=== PATIENT | female | born 1945 | race Caucasian/White ===

== ENCOUNTER 2017-08-22 16:27 | Inpatient (IN) | payer MEDICARE ==
[~2017-08-22] VITALS: Ht 172.7 cm; Wt 106.0 kg
[~2017-08-22 16:27] MED LIST: AZITHROMYCIN250 MG; CYCLOBENZAPRINE10 MG PO; FLUCONAZOLE150 MG; HYDRALAZINE HCL25 MG PO; IPRAT-ALBUT 0.5-3 ML INH; LEVOFLOXACIN500 MG PO; LOSARTAN POTASS50 MG PO; LYRICA50 MG PO; MEDROL4 M1 PO; NAPROSYN375 MG PO; NAPROXEN500 MG; OXYCODONE HCL5 MG; PROAIR HFA8.5 GM; PROAIR HFA8.5 GM INH; PROVENTIL HFA6.7 GM INH; TESSALON PERLE100 MG PO; TRAMADOL HCL50 MG PO; VICODIN ES 7.51 EAC1 PO; ZITHROMAX TRI-500 MG PO
[2017-08-22] MEDS ORDERED: ATORVASTATIN CA10 MG PO (16:48)
--- NOTE | 2017-08-22 21:10 | NUR ---
RECEIVED REPORT FROM COMBINATION WELDER. PATIENT INITIAL ASSESMENT COMPLETED. ADMISSION COMPLETED BY COMBINATION WELDER. PATIENT IS RESTING IN BED. PATIENTS EVENING MEDICATIONS GIVEN PER ORDER. PATIENT RATES PAIN AT A 6/10. PATIENT HAS NO PAIN MEDICATIONS ON EMAR. WILL TALK TO HOSPITALIST. NO FURTHER NEEDS NOTED. CALL LIGHT IN REACH.
--- NOTE | 2017-08-22 22:20 | NUR ---
MD PLACED NEW ORDER FOR PATIENT FOR PAIN MANAGEMENT. PATIENT GIVEN PRN PAIN MEDICATION PER ORDER. NO FURTHER NEEDS NOTED. CALL LIGHTIN REACH.
--- NOTE | 2017-08-22 22:50 | NUR ---
PATIENT MOVED TO ROOM 117. PATIENT TOLERATED MOVE WELL. PLACED BEDISDE COMMODE BY PATIENTS BEDSIDE TO USE. PATIENT ORIENTED TO NEW ROOM. NO FURTHER NEEDS NOTED. CALL LIGHT IN REACH.
--- NOTE | 2017-08-23 01:36 | NUR ---
PATIENTS COMMODE EMPTIED. PATIENTS GOWN AND PILLOW CASE CHANGED PATIENT IS SOAKED WITH SWEAT. PATIENT RATES PAIN AT A 3/10. PATIENT DENIES THE NEED FOR PAIN MEDICATION AT THIS TIME. CALL LIGHT IN REACH.
--- NOTE | 2017-08-23 02:48 | NUR ---
PATIENTS VITALS TAKEN AND RECORDED. PATIENT DENIES ANY NEEDS AT THIS TIME. CALL LIGHT IN REACH.
--- NOTE | 2017-08-23 04:52 | NUR ---
PATIENT IS RESTING IN BED ON HER RIGHT SIDE. PATIENTS BREATHING IS EVEN AND UNLABORED, RR 21. CALL LIGHT IN REACH.
--- NOTE | 2017-08-23 06:36 | NUR ---
PATIENT ASSISTED TO THE BEDSIDE COMMODE. PATIENT WAS ABLE TO PIVOT TRANSFER WITH NO ASSISTANCE. PATIENT WAS ABLE TO VOID A SMALL AMOUNT. PATIENT RATES PAIN AT AN 8/10. PATIENT GIVEN PRN PAIN MEDICATION PER ORDER. PATIENT IS BACK IN BED RESTING. PATIENT DENIES ANYU FURTHER NEEDS AT THIS TIME. CALL LIGHT IN REACH.
--- NOTE | 2017-08-23 06:41 | NUR ---
PATIENT HAS LOWER URINE OUPUT. PLACED CALL TO MD. NO NEW ORDERS AT THIS TIME.
--- NOTE | 2017-08-23 07:48 | NUR ---
PATIENT AWAKE LYING IN BED DURING REPORT. REPORT RECEIVED FROM ARIS BARON. PT WANTS FENTANYL IV FOR BACK PAIN.
--- NOTE | 2017-08-23 08:09 | NUR ---
PT RESTING ON RIGHT SIDE IN BED. C/O FEELING COLD IN TRUNK AREA. FENTANYL 25MCG GIVEN IV. TOOK SCHEDULED MEDS. DOES NOT LIKE BLANKETS ON FEET.
--- NOTE | 2017-08-23 10:43 | NUR ---
PATIENT STATES THAT SHE HAS NOT GONE TO THE BATHROOM SINCE SHIFT CHANGE AND DOES NOT NEED TO USE THE RESTROOM.
--- NOTE | 2017-08-23 10:52 | NUR ---
PATIENT RESTING IN BED. RN NOTIFIED ABOUT BLOOD PRESSURE. PATIENT VISITING WITH A FRIEND. PATIENT STATES SHE HAS A HARD TIME GOING TO THE BATHROOM. FRESH ICE WATER. CALL LIGHT WITHIN REACH. NO OTHER NEEDS AT THIS TIME.
--- NOTE | 2017-08-23 11:49 | NUR ---
PT UP TO BSC AND BACK TO BED INDEPENDENTLY. SISTER IN LAW AT BEDSIDE. LUNCH DELIVERED. BP IMPROVED. VOIDED 250 DARK PAUL FOUL SMELLING URINE.
[2017-08-23] MEDS ORDERED: ATORVASTATIN CA20 MG PO (11:58)
--- NOTE | 2017-08-23 12:01 | NUR ---
MED REC COMPLETE WITH SAFEWAY REFILL HISTORY AND PATIENT INTERVIEW. PATIENT ALSO GETS MAIL ORDER MEDICATION.
[2017-08-23] MEDS ORDERED: CRANBERRY200 MG PO (12:09)
[2017-08-23] MEDS ORDERED: VITAMIN E100 UNIT PO (12:11)
[2017-08-23] MEDS ORDERED: VITAMIN D5000 UNI1 PO (12:11)
[2017-08-23] MEDS ORDERED: VITAMIN A8000 UNIT PO (12:11)
--- NOTE | 2017-08-23 13:33 | NUR ---
PATIENT RELAXING IN BED. PATIENT STATES PAIN LEVEL IS A 4 OUT OF 10 WHEN SHE DOES NOT MOVE. PATIENT STATES PAIN LEVEL IS A 6 OUT OF 10 WHEN SHE MOVES. FRESH ICE WATER. CALL LIGHT WITHIN REACH. NO OTHER NEEDS AT THIS TIME.
--- NOTE | 2017-08-23 13:45 | NUR ---
pt grunting and reported pain 7/10 in back to VETERANS ADVISER. patient lying on right side. IVF infusing. fentanyl given for pain.
--- NOTE | 2017-08-23 17:55 | NUR ---
PATIENT SLEEPING MOST OF DAY. INDEPENDENT TO BSC. PAIN IN BACK-- 25MCG FENTANYL IV FOR PAIN. LOW URINE OUTPUT. DARK PAUL. NS @ 125. ROCEPHIN/ZITHROMAX. WATCH LUNG SOUNDS FOR FLUID OVERLOAD. 2L 02 VIA NC. INDEPENDENT TO BSC.
--- NOTE | 2017-08-23 18:03 | NUR ---
PATIENT SITTING UP IN BED. PATIENT STATES PAIN LEVEL IS A 9 OUT OF 10. RN NOTIFIED. PATIENT STATES SHE HAS NOT BEEN ABLE TO USE THE RESTROOM, BUT DID TRY PRIOR TO THIS CRIME SPECIALIST GOING INTO ROOM. RN IN ROOM. CALL LIGHT WITHIN REACH. NO OTHER NEEDS AT THIS TIME.
--- NOTE | 2017-08-23 18:04 | NUR ---
ADMINISTERED PRN PAIN MEDS PER RN AND PT REQUEST.
--- NOTE | 2017-08-23 19:15 | NUR ---
RECEIVED REPORT FROM RN. PATIENT RESTING IN BED, BREATHING IS EVEN AND UNLABORED. DENIES NEEDS AT THIS TIME. CALL LIGHT WITHIN REACH.
--- NOTE | 2017-08-23 21:02 | NUR ---
PATIENT RESTING IN BED, BREATHING IS EVEN AND UNLABORED. REPORTS 5/10 PAIN IN BACK, PRN FENTANYL GIVEN PER EMAR. PATIENT DENIES FURTHER NEEDS. CALL LIGHT WITHIN REACH.
--- NOTE | 2017-08-23 22:31 | NUR ---
PATIENT GIVEN PRN TYLENOL FOR HEADACHE, REPORTS 2/10 PAIN. DENIES FURTHER NEEDS. CALL LIGHT WITHIN REACH.
--- NOTE | 2017-08-24 03:29 | NUR ---
PATIENT RESTING IN BED, BREATHING IS EVEN AND UNLABORED. REPORTS 4/10 PAIN, DENIES NEED FOR PAIN MEDICATION. NO NEEDS AT THIS TIME. CALL LIGHT WITHIN REACH.
--- NOTE | 2017-08-24 05:24 | NUR ---
PATIENT SITTING ON EDGE OF BED, RR IS 24, BREATHING APPEARS TO BE LABORED. PATIENT REPORTS "COUGHING FIT" AND STATES THAT THIS IS THE REASON FOR SHORTNESS OF BREATH. REPORTS 7/10 PAIN IN BACK. PRN FENTANYL GIVEN PER EMAR. PATIENT DENIES FURTHER NEEDS. CALL LIGHT WITHIN REACH.
--- NOTE | 2017-08-24 05:48 | NUR ---
PATIENT'S NIGHT WAS UNEVENTFUL. SHE HAS BEEN RESTING OFF AND ON THROUGHOUT SHIFT. VSS, URINE OUTPUT QS. PAIN WELL CONTROLLED WITH PRN FENTANYL. REMAINS ALERT AND ORIENTED. CONTINUES TO HAVE EXW IN ALL LUNG GALLAGHER, ABLE TO TITRATE O2 TO 1L VIA NC. IV FLUIDS INFUSING THROUGHOUT NIGHT, SBA TO BEDSIDE COMODE. NO ACUTE CHANGES.
--- NOTE | 2017-08-24 08:35 | NUR ---
This MOLECULAR PATHOLOGIST standby assisted patient up to bathroom and back to bedside. Oral care and clean gown set up in bathroom for patient. Patient states she will do oral care and change gowns later as she would like to shower this evening after family visits. Linens changed. Patient given warm blankets and fresh ice water. Call light in reach. no other needs at this time.
--- NOTE | 2017-08-24 09:15 | NUR ---
PT RESTING IN BED, AWOKE EASILY TO VOICE. ASSESSMENT COMPLETED AND MEDICATED WITH AM MEDS. STATES THAT SHE IS VERY COLD, GIVEN WARM BLANKET AND EXTRA HEAVY BLANKET PER REQUEST. IV INFUSING WNL, DRESSING CDI. 2+ PITTING EDEMA OF BILATERAL LOWER EXTREMITIES. ALERT AND ORIENTED. SATTING 96% ON 1L NC. FINE CRACKLES IN BASES, NOTIFIED DR. MONTENEGRO. CALL LIGHT WITHIN REACH.
--- NOTE | 2017-08-24 10:16 | NUR ---
PATIENT RESTING, EYES CLOSED. FRESH ICE WATER AT BEDSIDE TABLE. CALL LIGHT IN REACH. NO OTHER NEEDS AT THIS TIME.
--- NOTE | 2017-08-24 12:12 | NUR ---
PATIENT SITTING UP ON BEDSIDE, EATING LUNCH. FAMILY IN ROOM. CALL LIGHT IN REACH. NO OTHER NEEDS AT THIS TIME.
--- NOTE | 2017-08-24 12:30 | NUR ---
PT SITTING UP AT BEDSIDE EATING LUNCH. WEANED TO RA, SATTING 98% ON RA. PT DENIES PAIN OR OTHER CONCERNS AT THIS TIME. CALL LIGHT WITHIN REACH.
--- NOTE | 2017-08-24 13:15 | NUR ---
PT UP TO RESTROOM WITH MINIMAL ASSIST. URINE HAS BECOME MUCH CIGAR HEAD PUNCHER, YELLOW URINE, NO FOUL ODOR NOTED. PT REPORTS LESS DISCOMFORT DURING URINATION, BUT COMPLAINS OF INCONTINENCE.
--- NOTE | 2017-08-24 14:36 | NUR ---
PATIENT WASHED UP IN BATHROOM WITH BATH WIPES. PATIENT SITTING UP ON BEDSIDE. FRESH ICE WATER AT BEDSIDE. CALL LIGHT IN REACH. NO OTHER NEEDS AT THIS TIME.
--- NOTE | 2017-08-24 14:39 | NUR ---
PATIENT STATES SHES BEEN MOVING AROUND ROOM ACTIVELY AND THAT IT MAY CONTRIBUTE TO HER HIGHER BLOOD PRESSURE. RN NOTIFIED OF BLOOD PRESSURE CHANGES.
--- NOTE | 2017-08-24 15:00 | NUR ---
PT SL AND TRANSFERRED TO IMAGING VIA WHEELCHAIR FOR CT SCAN.
--- NOTE | 2017-08-24 15:40 | NUR ---
Patient resting in bed eyes closed. RN in room. Call light in reach. No other needs at this time.
--- NOTE | 2017-08-24 15:55 | NUR ---
PT MEDICATED WITH TYLENOL FOR HEADACHE. IV LEAKING SLIGHTLY, IV REPOSITIONED AND REDRESSED, FLUSHING WELL AT THIS TIME. UP TO BEDSIDE COMMODE TO VOID. BACK TO BED. CALL LIGHT WITHIN REACH.
--- NOTE | 2017-08-24 16:33 | NUR ---
RIGHT HAND IV CONTINUED TO LEAK. IV DC'D BY THIS RN AND NEW 22G IV STARTED IN LEFT AC BY SHANELL BARON. PT RESTING IN BED, FLUIDS RUNNING WNL. NO FURTHER NEEDS AT THIS TIME.
--- NOTE | 2017-08-24 19:05 | NUR ---
RECEIVED REPORT FROM RN. PATIENT RESTING IN BED, DENIES NEEDS AT THIS TIME. CALL LIGHT WITHIN REACH.
--- NOTE | 2017-08-24 19:06 | NUR ---
RN IN ROOM. PATIENT SITTING UP ON BEDSIDE. CALL LIGHT IN REACH. NO OTHER NEEDS AT THIS TIME.
--- NOTE | 2017-08-24 21:13 | NUR ---
VITALS AND I&OS DONE AND CHARTED. FRESH WATER GIVEN AFTER SHE SPILLED ON THE FLOOR. I LET RN KARLOS KNOW THAT SHE WOULD LIKE A TYLENOL FOR A HEADACHE. BEDSIDE TABLE AND CALL LIGHT WITHIN REACH.
--- NOTE | 2017-08-24 21:48 | NUR ---
PATIENT IS RESTING IN BED, BREATHING APPEARS TO BE LABORED DUE TO COUGH. DENIES FEELING SHORT OF BREATH. REPORTS 5/10 HEADACHE, PRN TYLENOL GIVEN. PATIENT DENIES FURTHER NEEDS. CALL LIGHT WITHIN REACH.
--- NOTE | 2017-08-24 23:50 | NUR ---
PATIENT CALLED NURSES STATION STATING "I CAN'T BREATHE." UPON ENTERING ROOM, PATIENT'S BREATH WAS LABORED AND TACHYPNEIC. PATIENT DENIES CHEST PAIN, RT ALSO IN ROOM. BREATHING TREATMENTS DONE PER EMAR. DURING BREATHING TREATMENTS, PATIENT STATES THAT SHE IS BEGINNING OF FEEL BETTER. EXW HEARD THROUGHOUT ALL LUNG GALLAGHER, IMPROVED WITH BREATHING TREATMENTS. NOW RESTING IN BED WITH HEAD ELEVATED, BREATHING IS EVEN AND UNLABORED. DENIES FURTHER NEEDS. CALL LIGHT WITHIN REACH.
--- NOTE | 2017-08-25 00:28 | NUR ---
PATIENT RESTING COMFORTABLY IN BED, BREATHING IS EVEN AND UNLABORED. FLACC SCORE OF 0. CALL LIGHT WITHIN REACH.
--- NOTE | 2017-08-25 03:00 | NUR ---
PATIENT RESTING IN BED, BREATHING IS EVEN AND UNLABORED. FLACC SCORE OF 0. CALL LIGHT WITHIN REACH.
--- NOTE | 2017-08-25 06:35 | NUR ---
PATIENT RESTING IN BED, BREATHING IS EVEN AND UNLABORED. FLACC SCORE OF 0. CALL LIGHT WITHIN REACH.
--- NOTE | 2017-08-25 07:15 | NUR ---
BEDSIDE HANDOFF REPORT RECEIVED FROM DIRECTOR OF PROPERTY MANAGEMENT RN. PT RESTING IN BED. IV FLUIDS INFUSING AT 125 ML/HR. PT ON 3L NC. PT DENIES OTHER NEEDS AT THIS TIME.
--- NOTE | 2017-08-25 09:15 | NUR ---
PT RESTING IN BED. PT ON 3L NC, WEANED TO ROOM AIR, LUNG SOUNDS CLEAR, OCCASIONAL COUGH, DENIES SOB. PT DENIES PAIN. BOWEL TONES ACTIVE, DENIES NAUSEA, BREAKFAST AT BEDSIDE. PT WITH EDEMA TO BLE, HX NEUROPATHY, PULSES PALPABLE. IV INFUSING NS AT 125 ML/HR, IV ABX INFUSING. PT SITTING ON EDGE OF BED FOR BREAKFATS. PT DENIES OTHER NEEDS AT THIS TIME. DISCUSSED PLAN OF CARE, PT REQUESTIGN TO SHOWER.
--- NOTE | 2017-08-25 10:59 | NUR ---
CAME IN TO SEE IF SHE WAS DONE WITH HER BREAKFAST. ALSO SHE WOULD LIKE TO TAKE A SHOWER LATER. NOW SHE IS RESTING.
--- NOTE | 2017-08-25 12:00 | NUR ---
MD TO BEDSIDE. PT SALINE LOCKED. ARM WRAPPED FRO SHOWER. CONTRIBUTION SOLICITOR TO ASSIST PT WITH SHOWER. PT DENIES OTHER NEEDS AT THIS TIME.
--- NOTE | 2017-08-25 12:27 | NUR ---
PT SHOWERED WITH MINIMAL ASSISTANCE, NEEDED HELP WASHING HER HAIR. PT BRUSHED HER TEETH. PT IS NOW SITTING UP IN CHAIR WITH CALL LIGHT IN REACH. LINENS WERE CHANGED BY JAMES COX. PT DID NOT NEED ANYTHING ELSE AT THE MOMENT
--- NOTE | 2017-08-25 14:25 | NUR ---
PT RESTING IN BED. PT STATES BREATHING FEELS BETTER AFTER NEB, CONTINUES TO HAVE SLIGHT EXPIRATORY WHEEZE THROUGHOUT, PT ON ROOM AIR. PT DENIES NAUSEA, BOWEL TONES ACTIVE. PT UP TO BATHROOM, VOIDING AND HAD BM. PT REQUESTING TYLENOL FOR HEADACHE, STATES SHE GETS HEADAHCES WHEN SHE HAS ALBUTEROL, 500 MG GIVEN. PT CONTINUES TO HAVE EDEMA TO BLE, UNCHANGED. PT DENIES OTHER NEEDS AT THIS TIME.
--- NOTE | 2017-08-25 17:35 | NUR ---
PT SITTING ON EDGE OF BED, EATING DINNER. PT DENIES NEEDS AT THIS TIME.
--- NOTE | 2017-08-25 18:15 | NUR ---
PT ON ROOM AIR, LUNG SOUNDS CLEAR WITH OCCASIONAL EXPIRATORY WHEEZE, PRN NEBS GIVEN. PT UP INDEPENDENT IN ROOM. SALINE LOCKED. TOLERATING CARDIAC DIET, HAD LARGE BM TODAY. PT URECEIVEDING IV CEFEPIME AND ZITHROMAX. PT WITH EDEMA TO BLE, 2+ UNCHANGED FROM THIS AM. PT VOIDING QS.
--- NOTE | 2017-08-25 19:00 | NUR ---
shift report receievd. patient in bathroom at this time. no needs.
--- NOTE | 2017-08-25 20:20 | NUR ---
Charge Nurse Rounding Note: Awake, watching tv, no c/o pain or requests.
--- NOTE | 2017-08-25 20:43 | NUR ---
VITALS AND I&OS DONE AND CHARTED. BEDSIDE TABLE AND CALL LIGHT WITHIN REACH. PT NEEDS NOTHING ELSE AT THIS TIME.
--- NOTE | 2017-08-25 21:50 | NUR ---
PATIENT FINISHED NEB TREATMENT AND REQUEST PRN TYLENOL TO HELP WITH HEADACHE THAT SHE REGULARLY GETS FROM USING ALBUTEROL. PATIENT DENIES ANY PAIN. SHE IS AAOX3. VERY TALKATIVE. LUNGS ARE CLEAR IN UPPER LOBED, COARSE IN LOWER LOBES. DRY COUGH. ABD IS ROUND, SOFT, BOWEL SOUNDS ACTIVE. EDEMA NOTED IN IN LOWER EXTREMITIES AND ARMS, PATIENT WILL NOT ALLOW PROPER ASSESSMENT OF EDEMA BECAUSE "YOU WILL PUSH TO HARD AND BLOOD WILL JUST START POORING OUT". SHE REPORTS VERY FRAGILE SKIN AND HAS MULTIPLE ABRASIONS ON EACH ARM. URINE OUTPUT HAS BEEN QS. PATIENT HAD REMOVED THE HAT FROM THE TOILET AND STATED "THEY DON'T NEED TO COLLECT MY PEE ANYMORE". I DISCUSSED THE IMPORTANCE OF MONITORING I&O'S AND PLACED HAT BACK IN TOILET. SHE AGREED TO USE IT BUT STATES, I WONT BE HAPPY IF I HAVE TO POOP AND THAT'S IN THERE." I ENCOURAGED HER TO CALL IF SHE NEEDS ASSISTANCE. PATIENT RESTING IN BED. DENIES FURTHER NEEDS.
--- NOTE | 2017-08-26 00:10 | NUR ---
PATIENT CALLED TO LET STAFF KNOW SHE HAD USED THE BATHROOM. RN EMPTIED HAT IN TOILET. PATIENT DENIES NEEDS.
--- NOTE | 2017-08-26 06:25 | NUR ---
PATIENT SLEPT WELL DURING THE NIGHT. URINE OUTPUT QS. TOLERATING DIET. PRN TYLENOL AFTER NEB TREATMENT FOR HEADACHE. TOLERATING ROOM AIR.
--- NOTE | 2017-08-26 06:32 | NUR ---
VITALS AND I&OS DONE AND CHARTED. GARBAGES EMPTIED. ROOM CLEANED UP. BEDSIDE TABLE AND CALL LIGHT WITHIN REACH. PT NEEDS NOTHING ELSE AT THIS TIME.
--- NOTE | 2017-08-26 07:20 | NUR ---
HANDOFF REPORT RECEIVED FROM RUBBER CUTTER RN. PT LEFT UNDISTURBED.
--- NOTE | 2017-08-26 08:45 | NUR ---
PT SITTING ON EDGE OF BED. PT DENIES PAIN. PT ON ROOM AIR, LUNG SOUNDS CLEAR WITH EXPIRATORY WHEEZE THROUGHOUT, PT DECLINING NEB AT THIS TIME. PT BOWEL TONES ACTIVE, DENIES NAUSEA. IV TO RIGHT AC, PATENT INFUSING IV ABX. PT CONTINUES TO HAVE EDEMA TO BLE, 2+, STATES AT BASELINE. DISCUSSED PLAN OF CARE FOR THE DAY. PT DENIES OTHER NEEDS AT THIS TIME.
--- NOTE | 2017-08-26 10:00 | NUR ---
PT SITTING ON EDGE OF BED. MD TO BEDSIDE, PLAN TO DISCHARGE TODAY. PT DENIES OTHER NEEDS AT THIS TIME.
[2017-08-26] MEDS ORDERED: DIFLUCAN150 MG PO (10:03)
[2017-08-26] MEDS ORDERED: AUGMENTIN 875-1 EACH PO (10:04)
--- NOTE | 2017-08-26 11:45 | NUR ---
DISCHARGE INSTRUCTIONS COMPLETED WITH PT. IV CATH REMOVED. MEDICATIONS REVIEWED. PT DRESSING AND COLLECTING BELONGS. RIDE TO ARRIVE AROUND 1230.
== END 2017-08-26 12:38 | disposition home or self-care (01) | DRG 689 ==
LOC: ED 16:27 → MS 19:04
PROVIDERS: ADMIT Internal Medicine
DX: N39.0 Urinary tract infection, site not specified (principal); J18.9 Pneumonia, unspecified organism; R65.10 Systemic inflammatory response syndrome (SIRS) of non-infectious origin without acute organ dysfunction; J44.9 Chronic obstructive pulmonary disease, unspecified; I10 Essential (primary) hypertension; E78.5 Hyperlipidemia, unspecified; E11.9 Type 2 diabetes mellitus without complications; K80.20 Calculus of gallbladder without cholecystitis without obstruction
CPT/HCPCS: 36415; 71045; 74177; 80048; 80053; 81001; 83605; 83690; 85025; 87040; 87088; 94640; 94760; J0456; J0696; J1650; J2405; J3010; J7030; J7040; J7050; Q9967

== ENCOUNTER 2020-07-03 08:35 | Day surgery (SDC) | payer MEDICARE ==
[~2020-07-03] VITALS: Ht 165.1 cm; Wt 95.4 kg
[~2020-07-03 08:35] MED LIST changes: +ADVAIR 500-501 EACH INH; +ALDACTONE25 MG PO; +ATORVASTATIN CA10 MG PO; +ATORVASTATIN CA20 MG PO; +AUGMENTIN 875-1 EACH PO; +CRANBERRY200 MG PO; +DEMADEX20 MG PO; +DIFLUCAN150 MG PO; +DILTIAZEM HCL60 MG PO; +DITROPAN XL5 MG PO; +ELIQUIS5 MG PO; +LOSARTAN POTASS25 MG PO; +LOW DOSE ASPIRI81 MG PO; +MAGNESIUM400 M1 PO; +VENTOLIN HFA18 GM NEB; +VITAMIN A8000 UNIT PO; +VITAMIN D5000 UNI1 PO; +VITAMIN E100 UNIT PO
--- NOTE | 2020-07-03 10:37 | NUR ---
07/03/20 Adina Onofre 1029-PATIENT ARRIVED TO PACU ON 6L MASK RR EVEN NONAROUSABLE. LEFT ARM ELEVATED ON PILLOW DRESSING INTACT. GOOD CAP REFILL AND WARMTH TO LEFT HAND. JIMY RADIAL PULSE DUE TO DRESSING. BP 96/44
[2020-07-03] MEDS ORDERED: OXYCODON-ACETA1 EAC2 PO (10:54)
[2020-07-03] MEDS ORDERED: ACETAMINOPHEN500 MG PO (10:54)
--- NOTE | 2020-07-06 13:00 | OR ---
[facility] [address], [place] [address] Signed DATE OF OPERATION: 07/03/2020 SURGEON: Kahtya Ingram MD PREOPERATIVE DIAGNOSIS: Left carpal tunnel syndrome. POSTOPERATIVE DIAGNOSIS: Left carpal tunnel syndrome. PROCEDURE: Left carpal tunnel release. ANESTHESIA: Left [place] block with IV sedation, Michael Leung CRNA and local 10 mL of 0.25% Marcaine without epinephrine. INDICATIONS: This 74-year-old white woman is a patient of Dr. Aguayo and has numerous chronic pain problems including knees and back and so forth. She has had very significant left hand and wrist symptoms highly typical of carpal tunnel syndrome. She has right-sided symptoms as well, but they are not as profound as on the left side. She is right-hand dominant. Her symptoms include numbness and tingling in the palm, wrist, thumb and index finger, particularly when driving. Splints were used without significant benefit. She underwent nerve conduction studies on April 14, 2020, confirming bilateral carpal tunnel syndrome, median neuropathy at the wrist, left greater than right. She is admitted at this time to undergo left carpal tunnel release. She understands the risks of bleeding, infection, recurrent disease and most importantly failure to cure her pain symptoms of the left wrist. She understands this and she wished to proceed. FINDINGS: Exsanguination of the left hand and arm for [place] block was adequate. Minimal venous bleeding was noted and it was well secured with electrocautery. The transverse carpal ligament was easily divided under direct visualization onto the palmar fascia and proximally to the transverse wrist crease without problem. The underlying nerve was impressively hyperemic and inflamed. There was no sign of neoplasm. Excellent decompression of the carpal canal has been accomplished by carpal tunnel release. DESCRIPTION OF PROCEDURE: The patient was brought to the operating room, given intravenous sedation and Electronically Signed By: KATHYA INGRAM MD 07/06/20 1300 PATIENT NAME: DENNIS DE LEON OPERATIVE REPORT DATE OF : 43 REPORT #: [id number] PHYSICIAN: KATHYA INGRAM MD PCP: ROHINI JOSHI MD REPORT IS CONFIDENTIAL AND NOT TO BE RELEASED WITHOUT AUTHORIZATION [facility] [address], [place] [address] Signed preoperative antibiotics and a left handed [place] block performed after exsanguination of the arm. The lower arm and hand were prepared with a chlorhexidine solution and draped sterilely. A rolled blue towel was placed behind the wrist in extension and a malleable finger retractor used to provide exposure of the volar aspect of the left wrist. A small incision was made in the proximal palmar arch ulnar to the palmar crease and dissection carried through the dermis and subcutaneous tissue, sharp dissection with a #15 blade. Electrocautery was used for a small bit of venous bleeding noted. The palmaris longus tendon was longitudinally and the transverse carpal ligament identified and transected allowing for placement of a fine hemostat beneath it for further transection distally onto the palmar fat. Hemostat was removed and reapplied proximally allowed for division of the transverse carpal ligament proximally. This was extended up to the transverse wrist crease without problem under direct visualization with tenotomy scissors. Irrigation was undertaken. The underlying median nerve was quite hyperemic and chronically inflamed it appeared. Small muscular fibers divided in the course of dissection were secured with needlepoint electrocautery avoiding any direct injury to the nerve of course. A 10 mL of 0.25% Marcaine was injected locally for postoperative analgesic effect. The skin closed with interrupted 2-0 nylon suture. Xeroform was applied as was sterile gauze and a Flexicon, and ultimately a cock-up wrist splint and Oli wrap applied over that. Pressure was applied to the palmar area and the tourniquet taken down at approximately 18 minutes. Pressure was applied to the operative site until erythema was evident and receding. She was then transferred to the recovery room in good condition, having suffered no complications. Sponge, needle, and instrument counts reported as correct x3. MD ERNST Nick/MODL /[id number] cc: Kourtney Aguayo MD Copies: ~ Electronically Signed By: KATHYA INGRAM MD 07/06/20 1300 PATIENT NAME: DENNIS DE LEON OPERATIVE REPORT DATE OF : 43 REPORT #: [id number] PHYSICIAN: KATHYA INGRAM MD PCP: ROHINI JOSHI MD REPORT IS CONFIDENTIAL AND NOT TO BE RELEASED WITHOUT AUTHORIZATION
== END 2020-07-03 11:35 | disposition home or self-care (01) ==
LOC: DS 08:35 → OPS 08:35 → DS 10:15 → OPS 10:15
PROVIDERS: ATTEND Surgery
PROC: 01N50ZZ Release Median Nerve, Open Approach (ICD-10-PCS; principal; 2020-07-03 10:15)
DX: G56.03 Carpal tunnel syndrome, bilateral upper limbs (principal); I11.0 Hypertensive heart disease with heart failure; I50.9 Heart failure, unspecified; I48.91 Unspecified atrial fibrillation; J44.9 Chronic obstructive pulmonary disease, unspecified; M21.061 Valgus deformity, not elsewhere classified, right knee; Z88.5 Allergy status to narcotic agent; Z88.8 Allergy status to other drugs, medicaments and biological substances; Z91.018 Allergy to other foods; Z79.01 Long term (current) use of anticoagulants; Z88.7 Allergy status to serum and vaccine; Z91.048 Other nonmedicinal substance allergy status
CPT/HCPCS: J0690; J2001; J2250; J2405; J2704; J7121